=== PATIENT | male | born 1960 | race Caucasian/White ===

== ENCOUNTER → 2016-11-03 | Outpatient (CLI) | payer SELFPAY ==
--- NOTE | 2016-11-03 16:09 | CT ---
HISTORY: Screening Cardiac calcium scoring. Technique: Multiple axial images of the chest were obtained on a [address] from the aortic arch to the base of the heart with noncontrast prospective gating.AEC was utilized. Findings: A total calcium score of 0 is observed. The score results in very low low, less than 5%, likelihood of coronary events given the age and sex matched cohort analysis. There is nodular pleuro parenchymal scarring in the left lung base. Thoracic spondylosis is noted. IMPRESSION: Coronary calcium score of 0. Reported By:
== END ==
LOC: RAD 13:19 → MERGE 13:19
PROVIDERS: ATTEND Nurse Practitioner Family
DX: Z13.6 Encounter for screening for cardiovascular disorders (principal)

== ENCOUNTER 2016-11-08 17:53 | Emergency (ER) | payer OTHER ==
[2016-11-08 17:56] VITALS: BMI 29.2
[2016-11-08 17:57] VITALS: BP 134/89
[2016-11-08] MEDS ORDERED: XYLOCAINE 2 % (PLAIN) IM ONE (21:37)
[2016-11-08] MEDS ORDERED: STERILE WATER IRRIGATION IR ONE ×2 (21:38→21:39)
[2016-11-08] MEDS ORDERED: ADACEL TDaP IM ONE ×2 (21:40→21:43)
--- NOTE | 2016-11-08 21:41 | DR.LACERAT ---
HPI - Time Seen Time seen: 21:30 - Primary Care Physician Primary Care Physician: Rosalino TABARES - HPI Comment HPI Comment: HISTORY BELOW. - Complaints Chief Complaint Doctors Comments: PATIENT CUT LEFT FOREARM WITH GLASS. PATIENT HAVE DEEP PUNCTURE LACERATION. MEASURED 3 AND 1/2 CM. PAIN IN LEFT FOREARM. PULSES INTACT. Chief Complaint:: PT. CUT LEFT FOREARM ON A PIECE OF GLASS. LACERATION IS APPROXIMATELY 2CM IN LENGTH. - Reviewed Nurses Notes Reviewed: Yes - Source History Provided: Patient - Mode of Arrival Mode of Arrival: Ambulatory - Timing Onset of Chief Complaint: 11/08/16 - Context Mechanism: Glass Tetanus Vaccination: No - Severity Pain Severity: Moderate Bleeding:: Controlled - Associated Signs and Symptoms Associated Signs and Symptoms: None PMH - PMH Past Medical History: Yes Past Medical History: Sleep Apnea Past Surgical History: Yes Surgical History: Appendectomy, Other Past Surgical History Comment: HERNIA REPAIR X 2, DEVIATED SEPTUM REPAIR - Family History History of Family Medical Conditions: No - Social History Does patient currently use any type of tobacco product: No Have you used tobacco products in the last 12 months: No Type of Tobacco Use: None Does any household member use tobacco: No Alcohol Use: None Do you use any recreational Drugs:: No Lives With: Spouse Lives Where: Home - infectious screening In the last 2 months have you had wt loss of >10#?: NO Have you had fever, night sweats or hemotysis?: No Have you traveled outside the country in the last 6 months?: No Isolation: Standard ROS - Review of Systems Constitutional: No Symptoms Reported Eyes: No Symptoms Reported ENTM: No Symptoms Reported Respiratoy: No Symptoms Reported Cardiovascular: No Symptoms Reported Gastrointestinal/Abdominal: No Symptoms Reported Genitourinary: No Symptoms Reported Neurological: No Symptoms Reported Musculoskeletal: Muscle Pain, Left, Forearm Integumentary: Change in Color, Wound (3 AND 1/2CM LACERATION/PUNTURE WOUND MEDIAL ASPECT MID FOREARM.) Endocrine: No Symptoms Reported All Other Systems: Reviewed and Negative PE - Vital Signs Vitals: Temperature 99.2 F Pulse Rate 76 Respiratory Rate 17 Blood Pressure 134/89 O2 Sat by Pulse Oximetry 97 - General Limitations: No Limitations General Appearance: Alert - Head Head Exam: Normal Inspection - Eyes Eye exam: Normal Appearance - ENT ENT Exam: Normal External Ear Exam - Neck Neck Exam: Normal Inspection - Chest Chest Inspection: Symmetric Chest Wall Rise - Respiratory Respiratory Exam: Normal Lung Sounds Bilat Respiratory Exam: Bilateral Clear to Auscultation - Cardiovascular Cardiovascular Exam: Regular Rate, Normal Rhythm, Normal Heart Sounds - Abdominal Exam Abdominal Exam: Normal Bowel Sounds, Soft, Tenderness - Extremities Extremities Exam: Tenderness (LAC LEFT FOREARM) - Back Back Exam: Normal Inspection - Neurologic Neurological Exam: Alert, Oriented X3 - Psychiatric Psychiatric Exam: Normal Affect, Normal Mood - Skin Type of Lesion: Laceration (3 AND 1/2CM.) MDM - Differential Diagnosis Differential Diagnosis: Contusion, Laceration Course - Treatment Treatment: SEE ORDERS. LAC CLOSE. - Reevaluation 1st: Improved - Education/Counseling Education/Counseling: Patient, Education Educated On: Treatment, Diagnosis, Needs for Follow Up Procedures - Laceration/Wound Repair Left Arm Wound Length (cm): 3 Wound's Depth, Shape: Linear Wound Explored: contaminated Irrigated w/ Saline (ccs): 1 Betadine Prep?: Yes Anesthesia: 1% Lidocaine Volume Anesthetic (ccs): 5 Wound Debrided: extensive Wound Repaired With: sutures Suture Size/Type: 4:0, Ethilion Number of Sutures: 4 Layer Closure?: Yes Deep Layer Suture Size/Type: 3:0, Vicryl Number Deep Layer Sutures: 2 Sterile Dressing Applied?: Yes Splint Applied?: No Sling Applied?: No Progress: WOUND CLOSE UNDER STERILE CONDITION ANTER NUMBING WITH LIDOCAINE AND IRRIGATING WITH 1L OF FLUID. - Diagnosis Discharge Problem: Laceration of left forearm Qualifiers: Encounter type: initial encounter Qualified Code(s): S51.812A - Laceration without foreign body of left forearm, initial encounter - Discharge Plan Disposition: 01 HOME, SELF-CARE Condition: Stable Prescriptions: Clindamycin HCl 300 mg PO Q6H #40 cap Hydrocodone-Acet 7.5 mg/325 mg [[place] 7.5/325 mg Tab] 1 tab PO Q6H PRN #12 tab PRN Reason: Pain Ondansetron HCl [Zofran Tab 4 mg] 4 mg PO Q8H PRN #12 tab PRN Reason: Nausea/Vomiting - Follow ups/Referrals Follow ups/Referrals: ANJEL TABARES [Primary Care Provider] - 2 days - Instructions Instructions: Laceration Care, Adult, [id number] Additional Instructions: RETURN TO ED IF WORSE. SUTURE OUT IN 10 DAYS.
[2016-11-08] MEDS ORDERED: CLEOCIN PO ONE (21:42)
[2016-11-08] MEDS ORDERED: CLEOCIN ONE (21:43)
[2016-11-08] MEDS ORDERED: HYDROGEN PEROXIDE 3% ONE (22:03)
[2016-11-08] MEDS ORDERED: NORCO 5/325 MG TAB PO ONE (22:03)
[2016-11-08] MEDS ORDERED: NORCO 5/325 MG TAB ONE (22:05)
[2016-11-08] MEDS ORDERED: NEOSPORIN OINT TOP ONE (22:08)
[2016-11-08] MEDS ORDERED: ZOFRAN TAB 4 MG PO PRN (22:08)
[2016-11-08] MEDS ORDERED: ZOFRAN TAB 4 MG ONE (22:09)
[2016-11-08] MEDS ORDERED: NEOSPORIN OINT ONE (22:10)
== END 2016-11-08 22:25 | disposition home or self-care (01) ==
LOC: MERGE 18:02 → ER 18:02
PROC: 0HQBXZZ Repair Right Upper Arm Skin, External Approach (ICD-10-PCS; principal; 2016-11-08)
DX: S51.812A Laceration without foreign body of left forearm, initial encounter (principal); W25.XXXA Contact with sharp glass, initial encounter; Y92.9 Unspecified place or not applicable
CPT/HCPCS: 12002; 90471; 99282; A4217; S0181

== ENCOUNTER → 2017-03-05 | Outpatient (CLI) | payer OTHER ==
[2016-11-09 14:30] VITALS: BP 134/89
--- NOTE | 2017-03-08 16:39 | MRI ---
STUDY: MRI OF THE BRAIN WITHOUT GADOLINIUM History: Patient has extreme difficulty remembering things. Comparison: None. Technique: Multiplanar multi-sequence MRI of the brain was obtained utilizing standard departmental p rotocol. Sagittal and axial T1, axial T2, FLAIR, diffusion (DWI/ADC) images through the brain were pe rformed. Findings: The sulci, cisterns, and ventricles are age appropriate. There is no evidence of acute terr itorial infarction, hemorrhage, mass, mass effect or midline shift. There are no abnormal intra-axial or extra-axial fluid collections. The major intracranial vascular flow voids are intact. IMPRESSION: 1. No evidence of acute intracranial abnormality. Reported By:
== END ==
LOC: RAD 10:20
PROVIDERS: ATTEND Nurse Practitioner Family
DX: R41.1 Anterograde amnesia (principal)
CPT/HCPCS: 70551

== ENCOUNTER → 2017-07-29 | Outpatient (CLI) | payer OTHER, BC ==
[2016-11-09 14:30] VITALS: BP 134/89
--- NOTE | 2017-07-30 06:04 | MRI ---
HISTORY: LEFT SHOULDER PAIN AND RECENT INJURY. EXAM: NON-CONTRAST MRI EXAM OF THE LEFT SHOULDER JOINT. TECHNIQUE: Multisequence and multiplanar T1 and T2 weighted sequences of the left shoulder joint were obtained without the administration of IV paramagnetic contrast at 1.5 Renee. COMPARISON: No recent priors. FINDINGS: There is an acute to subacute appearing, high-grade, tear of the superior fibers of the sub-scapulari s at their insertion on the humeral lesser tuberosity with adjacent fluid and soft tissue swelling/ed belkis. The inferior fibers of the sub-scapularis appear intact. The medial translocation of the intra-a rticular biceps tendon is seen. The biceps tendon is diffusely edematous and shows tendinosis degener ative labral fraying is noted, diffusely. There is grade 2/3 shoulder joint chondromalacia with some remodeling of the posterior/inferior glenoid cavity with there is subchondral cyst formation noted. T here is a moderate-sized shoulder joint effusion. There is a loose body seen in the subcoracoid bursa on image number 5 of series 501 which measures 6 mm. The remainder of the rotator cuff shows tendino sis but is otherwise intact. There is fluid seen within the subacromial/subdeltoid bursa. There is mo derate AC joint osteoarthritis with a downsloping acromion. There is mild to moderate left shoulder j oint DJD. Mild atrophic changes seen within the teres minor. No other rotator cuff atrophy or rotator cuff abnormality is seen. There is no acute fracture or pathologic bone marrow edema observed. No ot her bony or soft tissue abnormalities are identified. No other musculoskeletal injuries are appreciat ed. IMPRESSION: Acute to subacute appearing, high-grade, tear of the superior fibers of the sub-scapularis at their i nsertion on the humeral lesser tuberosity with adjacent fluid and soft tissue swelling/edema. The inf erior fibers of the sub-scapularis appear intact. Biceps tendinosis with moderate size shoulder joint effusion & subacromial bursitis. 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 Small loose body seen in the subcoracoid bursa. Moderate AC joint osteoarthritis with a downsloping acromion also appreciated. Mild atrophic changes seen within the teres minor. No acute fractures identified. Reported By:
== END | disposition home or self-care (01) | DRG 950 ==
LOC: RAD 12:55
PROVIDERS: ATTEND Nurse Practitioner Family
DX: S49.92XD Unspecified injury of left shoulder and upper arm, subsequent encounter (principal); X58.XXXD Exposure to other specified factors, subsequent encounter; M75.22 Bicipital tendinitis, left shoulder; M94.212 Chondromalacia, left shoulder; M19.012 Primary osteoarthritis, left shoulder
CPT/HCPCS: 73221